=== PATIENT | male | born 1965 | race Caucasian/White ===

== ENCOUNTER 2023-09-06 14:09 | Emergency (ER) | payer OTHER ==
[~2023-09-06] VITALS: Ht 177.8 cm; Wt 68.0 kg
== END 2023-09-06 14:32 | disposition home or self-care (01) ==
LOC: ER 14:09
DX: Z02.89 Encounter for other administrative examinations (principal)
CPT/HCPCS: 99282

== ENCOUNTER 2023-09-12 13:02 | Emergency (ER) | payer OTHER ==
[~2023-09-12] VITALS: Ht 177.8 cm; Wt 68.0 kg
[2023-09-12 14:26] LABS: Influenza A, PCR NEGATIVE (NEGATIVE); Influenza B, PCR NEGATIVE (NEGATIVE); Resp Syncytial Virus, PCR NEGATIVE (NEGATIVE); SARS-Cov-2 (COVID-19) PCR, MMC NEGATIVE (NEGATIVE)
== END 2023-09-12 17:30 | disposition left against medical advice (07) ==
LOC: ER 13:02
PROVIDERS: Physician Assistant
DX: R05.9 Cough, unspecified (principal); Z53.29 Procedure and treatment not carried out because of patient's decision for other reasons
CPT/HCPCS: 0241U; 99281